=== PATIENT | female | born 1965 | race Caucasian/White ===

== ENCOUNTER → 2018-04-30 08:31 | Outpatient (CLI) | payer OTHER, SELFPAY | PROVIDERS: Family Provider Student in an Organized Health Care Education/Training Program; PCP Student in an Organized Health Care Education/Training Program; Visit Provider Obstetrics & Gynecology | DX: Z12.31 Encounter for screening mammogram for malignant neoplasm of breast (principal) | CPT/HCPCS: 77063; 77067 ==

== ENCOUNTER → 2019-04-29 13:43 | Outpatient (CLI) | payer OTHER, SELFPAY | PROVIDERS: Visit Provider Obstetrics & Gynecology | DX: Z12.4 Encounter for screening for malignant neoplasm of cervix (principal) ==

== ENCOUNTER → 2019-05-18 07:40 | Outpatient (CLI) | payer OTHER, SELFPAY ==
--- NOTE | 2019-05-18 07:43 | BI_ITS ---
MAMMOGRAPHY - BILATERAL SCREENING REASON FOR EXAM: Female, 54 years old. Routine annual screening examination. PERTINENT HISTORY: Grandmother with breast cancer. TECHNIQUE: Digital bilateral breast jane (3D mammographic acquisition) in the CC and MLO projections. 2-D mediolateral oblique (MLO) and craniocaudad (CC) views of both breasts were obtained. CAD: Full Field Digital Mammography with Computer Added Detection was performed. COMPARISON: Comparison is made with prior study dated April 30, 2018 and April 17, 2017. FINDINGS: Breast Composition: The breasts are heterogeneously dense, which may obscure small masses. There are no dominant masses or suspicious calcifications. No other significant abnormalities are identified. There has been no significant change since the prior study. BI/SCREEN MAMM (CAD) W/JANE BILAT IMPRESSION: Stable bilateral screening mammogram. Yearly follow-up mammogram recommended. (A) ASSESSMENT CATEGORY: BIRADS Category 1: Negative. A letter regarding these results will be sent to the patient by the facility within 30 days. Approximately 10% of breast cancers are not detected by mammography. A normal mammogram should not delay biopsy of a clinically suspicious abnormality. [id number] Electronically Signed: Pedro Sheppard, at 9:18 EDT , Service support ,
== END ==
PROVIDERS: Family Provider Student in an Organized Health Care Education/Training Program; PCP Student in an Organized Health Care Education/Training Program; Referring Provider Obstetrics & Gynecology; Visit Provider Obstetrics & Gynecology
DX: Z12.31 Encounter for screening mammogram for malignant neoplasm of breast (principal)
CPT/HCPCS: 77063; 77067

== ENCOUNTER → 2019-11-11 | Outpatient (CLI) | payer OTHER, SELFPAY ==
[2019-11-11 10:39] LABS: Erythrocyte Sedimentation Rate 2 mm/hr (0-30)
== END | disposition home or self-care (01) ==
LOC: LABSPEC 10:19
PROVIDERS: PCP Student in an Organized Health Care Education/Training Program
DX: R11.0 Nausea (principal); R68.89 Other general symptoms and signs
CPT/HCPCS: 85652

== ENCOUNTER 2020-05-02 13:38 | Emergency (ER) | payer OTHER, SELFPAY ==
[2020-05-02 13:38] VITALS: BP 159/91; PULSE 81; RESP 19; TEMP 36.3; O2SAT 100; BMI 22.5
--- NOTE | 2020-05-02 14:13 | CT_ITS ---
STUDY: CT ABDOMEN AND PELVIS WITH CONTRAST REASON FOR EXAM: Female, 55 years old. RLQ PAIN RADIATION DOSAGE (If Supplied By Facility): CTDIvol = ( 10.08 ) mGy, DLP = ( 343.27 ) mGycm TECHNIQUE: Transaxial images were obtained from the dome of the diaphragm to the symphysis pubis without oral contrast. IV 100mL Isovue-300 was administered. Sagittal and coronal images were reconstructed. Individualized dose optimization techniques were used for this CT. COMPARISON: None. FINDINGS: Patchy right lower lobe infiltrate. The visualized portions of the heart are within normal limits. Normal liver. Normal gallbladder and extrahepatic biliary system. Normal spleen. Normal pancreas. Normal bilateral adrenal glands. Normal right kidney. Normal left kidney. Normal visualized stomach. Normal small intestine. Moderate amount of fecal material is seen in the colon. The appendix is visualized and appears normal. Normal abdominal aorta. Normal inferior vena cava. Normal retroperitoneum. Normal urinary bladder. Normal abdominal wall. Normal osseous structures. CT/Abdomen/Pelvis W IV Cont ONLY IMPRESSION: Moderate amount of fecal material is seen in the colon. Electronically Signed: Pedro Sheppard, at 15:40 EDT , Service support ,
--- NOTE | 2020-05-02 14:14 | ED.VISSUMM ---
- ER Visit Summary Date of Service: 05/02/20 Chief Complaint: Right lower quadrant abdominal pain History of Present Illness: The patient is a 55 F CM past medical history prior surgeries including her back and rotator cuff. No prior abdominal surgeries. Thursday evening and Thursday morning had gradual onset of constant right lower quadrant abdominal pain. Mild nausea. No vomiting, nor diarrhea nor fever nor chills. No dysuria. No vaginal bleeding or discharge. States she no longer has menstrual periods. Denies any trauma. Is never had pain like this before. Nothing specifically makes it better. Lying down seems to make it worse. Physical Examination: White female no acute distress vital signs stable afebrile. H EENT exam unremarkable. Moist weeks membranes. Neck nontender no lymphadenopathy. Lungs clear to auscultation bilaterally. Heart regular rhythm no murmur. Abdomen soft. Only tenderness is in the right lower quadrant. No rebound, guarding or rigidity. Normal bowel sounds. No hernia or mass. No signs of obstruction. The right upper and both left quadrants are nontender. Moving all 4 extremities. Back nontender. Neurologically she is awake alert with no focal motor deficits. Test Results: CBC shows a white count 6. Hemoglobin 11.3 which is her baseline or better. No bands. Chemistries unremarkable normal creatinine and gap. Serum test negative. UA shows 25-50 white cells which could be consistent with a urinary tract infection but there is no nitrites nor bacteria and no red cells. A culture was ordered. CT abdomen and pelvis showed increased stool otherwise unremarkable read by the radiologist reviewed by me. Normal-appearing appendix Emergency Department Course and Treatment: With 2 to 3-day history of right lower quadrant abdominal pain. Differential include appendicitis versus diverticulitis versus other. Urine, labs and CT are being obtained. At this time patient did not anything for pain or nausea. Treatment Plan: Repeat exam patient is doing well at 1620. Abdomen is benign. She and I went over all of her test results. She will be given 1 dose of Bactrim here. Placed on a twice daily for 5 days. Urine culture sent. Follow-up with her primary care physician. Return if feeling worse. Disposition: Discharge Impression: Acute right lower quadrant abdominal pain Acute UTI This note was generated with [employer] software. It may contain incorrect words, spelling, and punctuation that were not noted in review of the chart prior to signing ED Disposition - Plan for ED Patient: Referrals: Guzman Klein DO [Primary Care Provider] -
[2020-05-02 14:29] LABS: Absolute Neutrophil Count 3.5 X10^3/uL (2.0-7.7); Basophil# 0.06 X10^3/uL; Eosinophil# 0.51 X10^3/uL; Eosinophils% 8.3 % (0-5); Hemoglobin 11.3 g/dL (12.0-15.0); Lymphocyte % 22.9 % (19-41); Mean Corp Hgb Conc 31.4 g/dL (32-36); Mean Corpuscular Hgb 28.4 pg (27.0-32.0); Mean Corpuscular Volume 90.5 fL (81-99); Mean Platelet Vol. 9.6 fl (6.2-12.0); Monocyte# 0.62 X10^3/uL; Monocyte% 10.1 % (0-10); NRBC Flagged by Analyzer 0 % (0-5); Neutrophil # 3.51 X10^3/uL (2.7-7.7); Neutrophil % 57.4 % (47-70); Platelet Count 307 K/mm3 (150-450); RBC Distribution Width CV 12.8 % (11.6-14.6); RBC Distribution Width SD 42.4 fl (35.1-43.9); Red Blood Count 3.98 M/mm3 (4.2-5.4); White Blood Count 6.1 K/mm3 (4.4-11.0)
[2020-05-02 14:31] LABS: Anion Gap 2 (5-15); BUN 17 mg/dL (7-18); BUN/Creat Ratio 19.5 RATIO (10-20); Calcium,Total 9.3 mg/dL (8.5-10.1); Chloride 107 mmol/L (98-107); Creatinine, Serum 0.87 mg/dL (0.55-1.02); EST Glomerular Filtration Rate 71 mL/min (>60); Est Glom Filt Rate - Afr Amer 86 mL/min (>60); Estimated Creatinine Clearance 69.38 ml/min; Glucose 89 mg/dL (74-106); Sodium Level 141 mmol/L (136-145)
[2020-05-02 14:38] LABS: Bacteria 0 SEEN /hpf (None Seen); Mucous, Urine 0 SEEN /hpf (<or=2+); Red Blood Cells-Urine 0 SEEN /hpf (0-5)
[2020-05-02 14:40] LABS: Color, Urine Yellow (Yellow); Glucose, Dipstick Normal (Normal); Ketone-Dipstick Negative (Negative); Leukocyte Esterase-Dipstick 500 /ul (Negative); Nitrite-Dipstick Negative (Negative); Occult Blood-Urine 25 /ul (Negative); Protein-Dipstick Negative (Negative); Urine Bilirubin Dipstick Negative (Negative); Urine Clarity Clear (Clear); Urine Urobilinogen Normal (Normal); Urine pH 6.5 (5.0 - 8.0)
[2020-05-02 14:41] LABS: White Blood Cells 25-50 SEEN /hpf (0-5)
[2020-05-02 14:42] LABS: Squamous Epithelial Cells - UA 0-5 SEEN /hpf (5-10)
[2020-05-02] MEDS: 0.9% Normal Saline 1,000 ML 1000 ML IV (15:07)
[2020-05-02 15:13] LABS: Internal QC Validated? YES +Cl - CLEAR BKGD; Pregnancy, Serum, hCG Quali. NEGATIVE Negative
[2020-05-02 16:05] VITALS: BP 124/73; PULSE 71; RESP 16; O2SAT 98
--- NOTE | 2020-05-02 16:30 | ED.DEP ---
ED Disposition - Plan for ED Patient: Disposition: Home or Assisted Living Instructions: ED Abdominal Pain Unkn Cause Fem, ED CYSTITIS Female Adult Prescriptions: Sulfamethoxazole/Trimethoprim [Bactrim Ds Tablet] 1 ea PO BID #10 tab Prescription Printed Referrals: Guzman Klein DO [Primary Care Provider] - 3-5 Days Additional Instructions: Your labs and CAT scan were unremarkable except for a possible urinary tract infection. There were white cells in your urine so we sent a urine culture which should be back in the next 48 hours. To treat possible urinary tract infection you were placed on the antibiotic Bactrim. You will take that 1 pill twice a day for the next 5 days. A urine culture was also sent which will tell us 1 if you have a urinary tract infection and to if it is sensitive to the specific antibiotic. Follow-up with your doctor. Return to the emergency department if you are feeling a lot worse. Currently there is no signs of acute appendicitis.
[2020-05-02] MEDS: Smz/Tmp Ds Tablet 1 TABLET PO (16:39)
[2020-05-02 16:42] VITALS: BP 124/73; PULSE 71; RESP 16; O2SAT 98
== END 2020-05-02 16:43 | disposition home or self-care (01) ==
PROVIDERS: Emergency Provider Emergency Medicine; PCP Student in an Organized Health Care Education/Training Program
DX: N39.0 Urinary tract infection, site not specified (principal); R10.31 Right lower quadrant pain
CPT/HCPCS: 74177; 80048; 81001; 84703; 85025; 87086; 87088; 96360; 99285; J7030; Q9967; A4216